=== PATIENT | male | born 1970 | race Caucasian/White ===

== ENCOUNTER 2017-03-04 02:50 | Emergency (ER) | payer SELFPAY, OTHER | END 2017-03-04 06:14 | disposition left against medical advice (07) | LOC: FTE 02:50 | DX: Z53.21 Procedure and treatment not carried out due to patient leaving prior to being seen by health care provider (principal) ==

== ENCOUNTER 2017-03-04 07:29 | Emergency (ER) | payer MEDICAID ==
[2017-03-04 10:00] LABS: ADD MAN DIFF? NO
[2017-03-04] MEDS: CLINDAMYCIN 600 MG/D5W (PMX) 50 ML IVPB (10:00)
[2017-03-04 10:15] LABS: BASOPHILS % 0.4 % (0.0-2.0); EOSINOPHILS # 0.2 10^3/ul (0.0-0.5); EOSINOPHILS % 3.1 % (0.0-7.0); HEMATOCRIT 48.9 % (42.0-52.0); HEMOGLOBIN 16.2 g/dl (14.0-18.0); LYMPHOCYTES # 2.4 10^3/ul (0.8-2.9); LYMPHOCYTES % 30.8 % (15.0-51.0); MEAN CORPUSCULAR HEMOGLOBIN 29.5 pg (29.0-33.0); MEAN CORPUSCULAR HGB CONC 33.1 g/dl (32.0-37.0); MEAN CORPUSCULAR VOLUME 89.1 fl (82.0-101.0); MEAN PLATELET VOLUME 9.5 fl (7.4-10.4); MONOCYTE # 0.8 10^3/ul (0.3-0.9); MONOCYTES % 10.2 % (0.0-11.0); NEUTROPHIL # 4.2 10^3/ul (1.6-7.5); PLATELET COUNT 267 10^3/UL (140-415); RED BLOOD COUNT 5.49 10^6/ul (4.70-6.10); RED CELL DISTRIBUTION WIDTH 13.4 % (11.5-14.5)
[2017-03-04 10:15] LABS: WHITE BLOOD COUNT 7.6 10^3/ul (4.8-10.8)
[2017-03-04 10:30] LABS: ANION GAP 17 (8-16); BLOOD UREA NITROGEN 13 mg/dl (7-20); CALCIUM 8.6 mg/dl (8.4-10.2); CARBON DIOXIDE 25 mmol/L (21-31); CHLORIDE 106 mmol/L (97-110); CREATININE 0.82 mg/dl (0.61-1.24); GLUCOSE 162 mg/dl (70-220); POTASSIUM 3.8 mmol/L (3.5-5.1); SODIUM 144 mmol/L (135-144)
[2017-03-04] MEDS: IOHEXOL 300MG/ML 150 ML BTL (10:51)
[2017-03-04] MEDS: SOD CHLORIDE 0.9% 100 ML (10:51)
== END 2017-03-04 12:20 | disposition home or self-care (01) ==
LOC: FTE 07:29
DX: L03.213 Periorbital cellulitis (principal); J45.909 Unspecified asthma, uncomplicated; I10 Essential (primary) hypertension; F17.210 Nicotine dependence, cigarettes, uncomplicated
CPT/HCPCS: 70480; 80048; 85025; 96374; 99285-25

== ENCOUNTER 2017-03-07 03:28 | Emergency (ER) | payer MEDICAID ==
[2017-03-07] MEDS: TETRACAINE 0.5% 4 ML OPH BOTH EYES (06:26)
[2017-03-07] MEDS: FLUORESCEIN STRIP BOTH EYES (06:26)
[2017-03-07] MEDS: CEFTRIAXONE 1 GM/50 ML (PMX) 50 ML IVPB (07:15)
[2017-03-07] MEDS: SOD CHLORIDE 0.9% 1,000 ML IV (07:28)
== END 2017-03-07 09:16 | disposition home or self-care (01) ==
LOC: FTE 03:28
DX: L03.213 Periorbital cellulitis (principal); J45.909 Unspecified asthma, uncomplicated; I10 Essential (primary) hypertension; F17.210 Nicotine dependence, cigarettes, uncomplicated
CPT/HCPCS: 87070; 96374; 99284-25